=== PATIENT | male | born 1995 | race Caucasian/White ===

== ENCOUNTER 2020-08-06 09:32 | Observation (INO) | payer OTHER ==
[~2020-08-06] VITALS: Ht 193 cm; Wt 74.8 kg
[2020-08-06 10:27] LABS: BASOPHILS ABSOLUTE AUTO 0.04 K/mm3 (0.00-0.23); BASOPHILS PERCENT AUTO 0 % (0-2); EOSINOPHILS ABSOLUTE AUTO 0.03 K/mm3 (0.00-0.68); EOSINOPHILS PERCENT AUTO 0 % (0-6); Hematocrit 47.1 % (37.0-53.0); IMMATURE GRAN ABSOLUTE AUTO 0.09 K/mm3 (0.00-0.10); IMMATURE GRAN PERCENT AUTO 0 % (0-1); LYMPHOCYTES ABSOLUTE AUTO 1.71 K/mm3 (0.84-5.20); LYMPHOCYTES PERCENT AUTO 8 % (21-46); MONOCYTES ABSOLUTE AUTO 0.92 K/mm3 (0.16-1.47); MONOCYTES PERCENT AUTO 5 % (4-13); Mean Corpuscular HGB 32.3 pg (26.0-34.0); Mean Corpuscular HGB Conc 36.1 g/dL (31.5-36.5); Mean Corpuscular Volume 89 fL (80-100); Mean Platelet Volume 10.1 fL (9.1-12.4); NEUTROPHILS ABSOLUTE AUTO 17.65 K/mm3 (1.96-9.15); NEUTROPHILS PERCENT AUTO 86 % (41-73); Platelet Count 295 K/mm3 (150-400); RDW Coefficient Variation 11.4 % (11.7-14.2); RDW Standard Deviation 37.3 fL (35.1-46.3); Red Blood Cell Count 5.27 M/mm3 (4.30-5.90); White Blood Cell Count 20.44 K/mm3 (4.00-11.30)
[2020-08-06 10:44] LABS: Alanine Aminotransfer (ALT/SGP 26 U/L (12-78); Albumin, Blood 4.7 g/dL (3.4-5.0); Albumin/Globulin Ratio 1.2 (0.8-1.8); Alk Phos 90 U/L (50-136); Anion Gap 12 mmol/L (6-16); Aspartate Aminotrans (AST/SGOT 22 U/L (12-37); Bilirubin, Total 1.4 mg/dL (0.1-1.0); Blood Urea Nitrogen 15 mg/dL (8-24); Bun/Creatinine Ratio 16.8 (12.0-20.0); CO2, Blood 21 mmol/L (21-32); Chloride, Blood 105 mmol/L (98-108); Creatinine, Blood 0.89 mg/dL (0.60-1.20); Globulin, Blood 3.9 g/dL (2.2-4.0); Glomerular Filtration Rate >60 (60-); Glucose, Blood 137 mg/dL (70-99); Potassium, Blood 3.2 mmol/L (3.5-5.5); Sodium, Blood 138 mmol/L (136-145); Total Protein, Blood 8.6 g/dL (6.4-8.2)
--- NOTE | 2020-08-06 13:20 | NUR ---
FROM ER TO [facility] ADMISSION TO UNIT STARTED. STATES PAIN AT 10 WOULD LIKE PAIN RX.
--- NOTE | 2020-08-06 13:24 | NUR ---
VERBAL ORDER FROM DR BARRIOS FOR PAIN RX AND NAUSEA MED
--- NOTE | 2020-08-06 14:43 | NUR ---
08/06/20 1443 Lion Skinner PT ON SCHEDULED ABTIBIOTICS
--- NOTE | 2020-08-06 17:12 | NUR ---
PT ARRIVED TO THE UNIT AT APPROXIMATELY 1600. PT ALERT AND ORIENTED. HE DENIES N/V AND PAIN. PT TOLERATING CLEAR LIQUIDS. VSS.
[2020-08-06] MEDS ORDERED: HYDR1TAB94 PO (17:58)
[2020-08-06] MEDS ORDERED: ONDA4 PO (17:59)
--- NOTE | 2020-08-06 18:21 | NUR ---
SHIFT SUMMARY PT WAS PROVIDED WITH WRITTEN AND VERBAL DISCHARGE INSTRUCTIONS; HE REPORTED UNDERSTANDING. PRESCRIPTIONS PROVIDED. PT WAS ABLE TO AMBULATE WITHOUT PAIN OR DIZZINESS. PT DENIED NEED FOR W/C AND AMBULATED OUT UPON DISCHARGE.
== END 2020-08-06 18:17 | disposition home or self-care (01) ==
LOC: ER 09:32 → SURS 09:33 → ER 13:09 → SURS 13:09
PROVIDERS: Physician Assistant; ADMIT Surgery
PROC: 0DTJ4ZZ Resection of Appendix, Percutaneous Endoscopic Approach (ICD-10-PCS; principal; 2020-08-06 14:00)
DX: K35.80 Unspecified acute appendicitis (principal); Z20.828 Contact with and (suspected) exposure to other viral communicable diseases; F17.210 Nicotine dependence, cigarettes, uncomplicated
CPT/HCPCS: 36415; 74177; 80053; 83690; 85025; 88304; 96365; 96375; 99285-25; J0295; J1100; J1170; J1885; J2250; J2270; J2405; J2704; J2710; J3010; J7030; J7120; Q2038; Q9967; U0003